=== PATIENT | male | born 1975 | race Two or more races ===

== ENCOUNTER 2021-06-26 17:27 | Emergency (ER) | payer BC ==
[~2021-06-26] VITALS: Ht 182.9 cm; Wt 98.0 kg
--- NOTE | 2021-06-26 17:40 | NUR ---
BIBRA 878 C/O L SHOULDER AND L CLAVICLE PAIN S/P TRIP AND FALL WHILE BIKING. DENIES KO. AOX4, NO SOB NOTED, RR EVEN AND UNLABORED. STABLE ON RA. SAFETY PRECAUTIONS INITIATED PER PROTOCOL
--- NOTE | 2021-06-26 17:45 | NUR ---
X-RAY CHEST, CLAVICLE AND RIBS DONE
[2021-06-26] MEDS ORDERED: CEFAZOLIN 1 GM in IV D5W 50 ML IV ONE (19:00)
--- NOTE | 2021-06-26 19:21 | NUR ---
PIV RAC G#20 INSERTED, GOOD BLOOD RETURN, INTACT, PATENT AND FLUSHING WELL.
--- NOTE | 2021-06-26 19:28 | NUR ---
Bernardo ramos in ED - 06/26/21 at 1929 by YOUSUF CALLED [facility] SPOKE TO CONFIGURATION MANAGEMENT MANAGERMAK IRVING, GAVE PT INFO, WILL CALL BACK
--- NOTE | 2021-06-26 19:29 | NUR ---
CALLED [facility] SPOKE TO MOSS BLEACHERMAK IRVING, GAVE PT INFO, WILL CALL BACK
[2021-06-26] MEDS ORDERED: FENTANYL PF 100MCG/2ML AMPUL ONE ×2 (19:39→23:27)
--- NOTE | 2021-06-26 19:52 | NUR ---
RECEIVED CALL FROM [facility] SPOKE TO COMMERCIAL REPORTERMAK IRVING, STATES WILL DECLINE THE TRANSFER DUE TO HOSPITAL AT CAPACITY, NO BED AVAILABILITY.
[2021-06-26] MEDS ORDERED: CLINDAMYCIN 900 MG/6 ML VIAL ONE (19:54)
[2021-06-26] MEDS ORDERED: FENTANYL PF 100MCG/2ML AMPUL IV ONE ×2 (20:00→23:30)
[2021-06-26] MEDS ORDERED: CLINDAMYCIN 900 MG in IV D5W 100 ML IV ONE (20:00)
--- NOTE | 2021-06-26 20:00 | NUR ---
CALLED [facility]- NO CAPACITY PER JOHANNY
--- NOTE | 2021-06-26 20:02 | NUR ---
ancef not administeres, med not available.
--- NOTE | 2021-06-26 20:10 | NUR ---
SPOKE WITH JONI FROM [facility] FOR REQUEST TO TRANSFER FOR HIGHER LEVEL OF CARE. CLINICALS WILL BE FAXED TO [phone]
--- NOTE | 2021-06-26 20:31 | NUR ---
ADDENDUM: Intravenous End Time Documentation: Clindamycin 900 mg in [id number] cc start time: 2030 PM end time: 2130 PM IV site: [facility] PIV # 20 Port # 1
--- NOTE | 2021-06-26 20:44 | NUR ---
CLINICALS FAXED TO [facility] TRANSFER
--- NOTE | 2021-06-26 21:45 | NUR ---
DR SUNG SPEAKING WITH [facility]
--- NOTE | 2021-06-26 21:47 | NUR ---
PT ACCEPTED AT [facility] BY BRANT PATEL
--- NOTE | 2021-06-26 21:50 | NUR ---
BLS TO [facility] ER ETA [phone]
--- NOTE | 2021-06-26 22:05 | NUR ---
REPORT GIVEN TO MAK CHAVEZ AT THE [facility].
[2021-06-27 00:28] VITALS: BP 139/88
--- NOTE | 2021-06-27 00:56 | NUR ---
PT TRANSFERRED TO [facility] .
--- NOTE | 2021-06-27 01:00 | NUR ---
APA 295 AT BEDSIDE FOR PT TRANSPORT TO [facility]. PT IS IN STABLE CONDITION FOR TRANSPORT. REPORT GIVEN TO EMT.
== END 2021-06-27 00:57 | disposition short-term general hospital (02) ==
LOC: ER 17:35
DX: S42.022B Displaced fracture of shaft of left clavicle, initial encounter for open fracture (principal); V18.4XXA Pedal cycle driver injured in noncollision transport accident in traffic accident, initial encounter; Y93.55 Activity, bike riding; Y92.89 Other specified places as the place of occurrence of the external cause; Z20.822 Contact with and (suspected) exposure to COVID-19
CPT/HCPCS: 29105; 71100; 73000; 73030; 87426; 96365; 96375; 96376; 99285; A6403; C9803; J3010 ×2; J3490 ×2; J7060 ×2; J0690